=== PATIENT | female | born 1935 | race Caucasian/White ===

== ENCOUNTER 2025-09-09 09:14 | Observation (INO) ==
--- NOTE | 2025-08-10 12:53 | PAT Medication Instructions ---
Medication Instructions Date of Service August 10, 2025 Home Medications acetaminophen 500 mg tablet 500 mg PO BID PRN prn atorvastatin 10 mg tablet 10 mg PO PM enalapril maleate 10 mg tablet 10 mg PO BID metoprolol tartrate 100 mg tablet 50 - 100 mg PO UD DO NOT take the morning of surgery enalapril maleate 10 mg tablet 10 mg PO BID Take morning of surgery With a small sip of water, OTHERWISE NOTHING TO EAT OR DRINK AFTER MIDNIGHT: acetaminophen 500 mg tablet 500 mg PO BID PRN prn (if needed) metoprolol tartrate Take evening before surgery acetaminophen 500 mg tablet 500 mg PO BID PRN prn (if needed) atorvastatin 10 mg tablet 10 mg PO PM enalapril maleate 10 mg tablet 10 mg PO BID metoprolol tartrate Other Notes If you have any questions please call us at [phone] or [phone] or [phone] or [phone]
--- NOTE | 2025-08-17 13:47 | Anesthesiology Consultation ---
Date of Service August 17, 2025 Assessment & Plan (1) Encounter for pre-operative examination: Plan - PCP clearance, Dr. Palak Raymundo [facility] [place], 08/24/25-will see if it is possible to receive [facility] cardiology note for review. - Outpatient joint assessment: Patient is currently scheduled for inpatient pathway. If re-evaluated and patient/surgeon requests outpatient pathway, patient is not a candidate for outpatient joint program. Chart Review Chart Review: Pending: Refer to Additional Notes / Consult section and Patient seen in Pre Admission Testing Teaching & Discussion Pre-Anesthesia Teaching/Discussion Notes: Instructed NPO after midnight before surgery, except medications with 15 cc of water. Medication instructions provided according to the PAT guidelines. History Surgery Operation Date: 09/09/25 07:00 Proposed Procedures p Right Total Knee Arthroplasty - Jorge Castro MD Height/Weight Height: 5 ft 3 in Weight: 59.8 kg Allergies Allergy/AdvReac Type Severity Reaction Status Date / Time Sulfa (Sulfonamide Allergy Unknown Unknown Verified 08/10/25 08:02 Antibiotics) Medications Home Medications Medication Instructions Recorded Confirmed Last Taken acetaminophen 500 mg tablet 500 mg PO BID PRN prn 08/10/25 08/10/25 Unknown atorvastatin 10 mg tablet 10 mg PO PM 08/10/25 08/10/25 Unknown enalapril maleate 10 mg tablet 10 mg PO BID 08/10/25 08/10/25 Unknown metoprolol tartrate 100 mg tablet 50 - 100 mg PO UD 08/10/25 08/10/25 Unknown Past Medical History Medical History 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 Exercise / Class Metabolic Activity III < 4 Walking/Shop/Light housework (ambulates with cane, denies chest discomfort or shortness of breath with usual activities) Past Surgical History Surgical History History of colonoscopy History of rotator cuff surgery bilateral History of bilateral tubal ligation History of lumbar surgery ? fusion, patient unsure History of total left knee replacement History of bunionectomy of both great toes History of cardiac catheterization 40 years ago, no stents, "was done because of early cardiac family deaths-was told they didn't feel surgery was warranted then bc of her age though did show abnormalities" doesn't follow with cardiology-last cardio eval estimated as 5 years ago with [place] [facility] Past Anesthesia History No Hx of Anesthesia Complications and No Family Hx of Anesthesia Complications History of PONV No Hx of PONV and Hx of Motion Sickness Social History Smoking Status: Never smoker Do You Dip or Chew Tobacco: No Hx Alcohol Use: Yes alcohol intake frequency: holidays/special occasions only Hx Substance Use: No substance use type: does not use Review of Systems Patient denies chest pain, shortness of breath, dyspnea on exertion, snoring, witnessed apneas, reflux, fever, chills, cough, wheezing, or palpitations. Physical Exam Vital Signs Vitals BP 146/68 P 59 TEMP 97.4 SP02 97% on RA RESP 17 Physical Patient resting comfortably in chair in no acute distress, alert and oriented, responding appropriately throughout visit Full cervical extension range of motion without pain TMD 3.5 finger breadths Mallampati Score 3 Dentition: several caps/crowns; denies chipped or loose teeth, implants or bridges Lungs: normal respiratory effort. Good air movement, clear throughout to auscultation, no adventitious breath sounds Cardiac: regular rate and rhythm, no murmurs noted Carotid arteries: negative bruit bilat Lab Results Anesthesia Preop Results Results Anesthesia Widget: WBC 8.16 K/ul (4.8-10.8) 08/17/25 Hgb 13.4 g/dl (12.0-16.0) 08/17/25 Hct 42.4 % (37.0-47.0) 08/17/25 Plt 278 K/uL (130-400) 08/17/25 Na 139 mmol/L (136-145) 08/17/25 K 4.7 mmol/L (3.5-5.1) 08/17/25 Cl 104 mmol/L (98-107) 08/17/25 CO2 28 mmol/L (21-32) 08/17/25 BUN 24 mg/dl (6-23) H 08/17/25 Creat 1.18 mg/dl (0.6-1.2) 08/17/25 Glucose Level 101 mg/dl (70-99(Fasting)) H 08/17/25 PT 10.3 Seconds (9.0-12.0) 08/17/25 PTT 29 Seconds (21-31) 08/17/25 INR 0.9 (0.9-1.1) 08/17/25 Urine Color Yellow 08/17/25 Urine Appearance Clear (Clear) 08/17/25 Urine pH 6.5 (4.5-7.5) 08/17/25 Urine Specific [place] 1.004 (1.000-1.030) 08/17/25 Urine Protein Negative (Negative) 08/17/25 Urine Glucose (UA) Negative (Negative) 08/17/25 Urine Ketones Negative (Negative) 08/17/25 Urine Blood Negative (Negative) 08/17/25 Urine Nitrite Negative (Negative) 08/17/25 Urine Bilirubin Negative (Negative) 08/17/25 Urine Urobilinogen Negative (Negative) 08/17/25 Urine Leukocyte Esterase Trace (Negative) H 08/17/25 Urine WBC (Auto) 0-5 /hpf (0-5) 08/17/25 Urine RBC (Auto) 0-2 /hpf (0-2) 08/17/25 Urine Hyaline Casts (Auto) 0-2 /lpf (0-2) 08/17/25 Urine Epithelial Cells (Auto) 0-2 /hpf (0-2) 08/17/25 Urine Bacteria (Auto) None Seen (None Seen) 08/17/25 Blood Type A Positive 08/17/25 Antibody Screen NEGATIVE 08/17/25 Testing Electrocardiogram Date: 08/17/25 Sinus bradycardia, rate 56 bpm
--- NOTE | 2025-08-18 15:07 | History & Physical Report ---
Date of Service August 18, 2025 Assessment & Plan (1) Osteoarthritis of right knee: Plan: PRE-OP Diagnosis: Right knee osteoarthritis Planned Procedure: Right total knee arthroplasty Plan: Patient is scheduled to undergo this procedure at the [facility] with Dr. Castro on September 09, 2025. Risks and complications of the procedure such as: Infection, bleeding, pain, scarring, nerve blood vessel damage, weakness, wound problems, stiffness, incomplete relief of symptoms, hardware failure, hardware loosening, wear, fracture, tendon or ligament injury, blood clots, embolism, cardiac, stroke and were explained to the patient at her visit today and informed consent for the procedure will be obtained on the morning of surgery. We will need to obtain preoperative medical clearance from the patient's primary care provider Dr. Raymundo. Patient is scheduled to meet with anesthesia at the hospital later today. While there she will obtain a CBC with differential, complete metabolic panel, PT/INR, blood type and screen, urinalysis, urine culture and sensitivity, EKG and a nasal culture for MRSA. During today's visit we reviewed the total knee packet. Patient states that she has a permanent placard for her vehicle. I provided her with information about lectures offered by [facility] in regards to joint replacement surgery. Patient has a walker that she will bring with her on the morning of surgery. I recommended that she purchase a shower chair and raised toilet seat. We discussed discharge planning from the hospital. Patient states she will most likely do in-home physical therapy at her daughter's home in [place] for the first 2 weeks before transitioning to outpatient physical therapy. I advised the patient that she will be provided with a prescription for narcotic pain medication for postoperative pain control. We will have her on aspirin twice daily for the first 30 days postoperatively for blood clot prevention. Patient verbalized understanding of all information provided during today's visit. Patient be scheduled for 2-week postoperative follow-up visit with September 22. This chart was completed utilizing [employer] voice recognition software. Grammatical errors, random word insertions, pronoun errors, and in complete sentences are an occasional consequence of the system. Any questions or concerns about the content, text, or information contained within the body of this dictation should be addressed directly to the physician for clarification. History of Present Illness Chief Complaint: Chief Complaint: Right knee pain Primary Care Provider: NO PCP History of Present Illness (including history relevant to procedure): This 89-year-old female presents to the clinic today for her preoperative history and physical examination. Patient complains of right knee pain past 10 years. It has become increasingly worse over the past year and last week very severe that required her to use 2 canes as assistive devices. She has had 5 years of alternating cortisone and gel injections every 6 months, with her last injection 1 year ago. She felt relief after injections lasting for only 1 month, so discontinued them. She has not had physical therapy for her R knee pain. Pain is exacerbated when she rolls over in bed. She manages her pain with Tylenol. She reports she cannot take ibuprofen due to kidney disease. She is not on any blood thinners. She reports limited physical activity, which consists of walking upstairs and downstairs 2 times a day in her home. She reports unsteadiness with walking. She does not report prior injury or surgery in her R knee. She had a L TKA about 20 years ago and reports developing foot drop afterwards. Review Of Systems: A 12 point review of systems is performed and is unremarkable except for those stated in the HPI past medical history. Past Medical History: Problems: Hypertension Hypercholesterolemia Stage III chronic kidney disease History of renal cancer Procedure History Procedure Procedure Date Comments Bilateral shoulder rotator cuff repair Left total knee arthroplasty Kidney removal due to cancer Hysterectomy Bladder suspension Foot surgery (bunionectomy and hammertoe fixation) Spinal surgery Allergies and Sensitivities: Keflex(unknown) sulfa drugs(unknown) Current Home Meds: (Last Updated 08/17 13:21) enalapril (enalapril 10 mg oral tablet) TAKE 1 TABLET BY MOUTH TWO TIMES DAILY metoprolol (Metoprolol Tartrate 100 mg oral tablet) TAKE 1/2 TABLET BY MOUTH EVERY MORNING AND TAKE 1 TABLET BY MOUTH EVERY EVENING unlisted medication (ATORVASTATIN 10 MG TABLET) TAKE 1 TABLET BY MOUTH NIGHTLY Allergies Allergy/AdvReac Type Severity Reaction Status Date / Time Sulfa (Sulfonamide Allergy Unknown Unknown Verified 08/10/25 08:02 Antibiotics) Home Medications Medication Instructions Recorded Confirmed Type acetaminophen 500 mg tablet 500 mg PO BID PRN prn 08/10/25 08/10/25 History atorvastatin 10 mg tablet 10 mg PO PM 08/10/25 08/10/25 History enalapril maleate 10 mg tablet 10 mg PO BID 08/10/25 08/10/25 History metoprolol tartrate 100 mg tablet 50 - 100 mg PO UD 08/10/25 08/10/25 History Past Med/Surg History Problem List (Updated 08/18/25 @ 15:05 by Niraj Armando PA-C) Osteoarthritis of right knee Encounter for pre-operative examination Medical History 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 fusion, patient unsure History of total left knee replacement History of bunionectomy of both great toes History of cardiac catheterization 40 years ago, no stents, "was done because of early cardiac family deaths-was told they didn't feel surgery was warranted then bc of her age though did show abnormalities" doesn't follow with cardiology-last cardio eval estimated as 5 years ago with [place] [facility] Social History Smoking Status: Never smoker Second Hand Exposure: No; Do You Dip or Chew Tobacco: No; Hx Alcohol Use: Yes Hx Substance Use: No Preferred Language: Greenlandic Screening Technician Required: No Beliefs That Will Affect Care: None Current Living Situation: Family Feels Safe at Home: Yes Assistive Devices: Cane and Hearing Aid - Bilateral Review of Systems All systems reviewed & are unremarkable except as noted in Subjective Physical Exam Physical Exam: Initial Wt: 08/17 59.6 kg 131 lb Physical Exam: (relevant to the procedure, including heart and lung evaluation) General: Alert and oriented x 3 with proper grooming and hygiene Eyes: Pupils are equal reactive to light with accommodation. Extraocular movements are intact Throat: Posterior oropharynx clear with absence of edema, erythema or exudate. Dentition is appropriate. Cardiac: Regular rate and rhythm with no murmurs or gallops appreciated Lungs: Clear to auscultation throughout with no wheezing, rales or rhonchi Abdomen: Nonobese, nondistended, nontender with NABS Extremities: Right knee; active knee range of motion is from 8 degrees of extension to 88 degrees of flexion. Patient has visible valgus malalignment experiences lateral joint line tenderness of the knee is palpated in the flexed position. There is audible crepitation with passive range of motion. I was unable to manipulate her patella due to arthritic change within the patellofemoral joint. She had no laxity with varus or valgus stressing. AP drawer sign and Desmond test are negative. Patient is neurovascularly intact in the right lower extremity. Neuro: Cranial nerves II through XII are intact no motor or sensory deficit Skin: Normal appearance of skin areas or discharge Results & Data Diagnostic Findings Studies (relevant to the procedure): 3 view of the R knee long leg alignment obtained today at [facility] show tricompartmental osteophytes and [id number] arthritis in the lateral joint space. Joint space is narrow medially.
[~2025-09-09 09:14] MED LIST: BUPIVACAINE 0.5 % 5 MG/1 ML PF 10ML VIAL ONE; ROPIVACAINE 0.5% 5 MG/ML 30 ML VIAL ONE
[2025-09-09] MEDS ORDERED: MIDAZOLAM HCL 1 MG/ML 2ML VIAL ONE (09:24)
[2025-09-09] MEDS ORDERED: ONDANSETRON INJ 2 MG/ML 2 ML VIAL ONE ×2 (09:31→10:02)
[2025-09-09] MEDS ORDERED: PROPOFOL IV EMULSION 10 MG/ML 20 ML VIAL IV ONE (09:59)
[2025-09-09] MEDS: LR 60ML/HR IV SCH (10:05)
[2025-09-09] MEDS: dexAMETHasone**PF** 10 MG/ML VIAL IV SCH (10:27)
[2025-09-09] MEDS: FAMOTIDINE 20 MG TAB PO SCH (10:28)
[2025-09-09] MEDS: ACETAMINOPHEN 500 MG TAB PO SCH (10:28)
[2025-09-09] MEDS ORDERED: ATROPINE SULFATE 0.1 MG/ML 10ML SYR IV PRN (10:32)
[2025-09-09] MEDS: LR 500ML BOLUS, THEN 15ML/HR IV SCH (10:32)
[2025-09-09] MEDS ORDERED: ONDANSETRON INJ 2 MG/ML 2 ML VIAL IV PRN ×2 (10:32→12:40)
--- NOTE | 2025-09-09 10:32 | History & Physical Bridge Note ---
Date of Service September 09, 2025 History & Physical Bridge Note I have examined the patient, reviewed the History & Physical and in the interval since the performance of the History & Physical I have noted the following changes of clinical significance: no changes noted
[2025-09-09] MEDS: TRANEXAMIC ACID 1,000 MG **IV Pre-op IV SCH (10:42)
[2025-09-09] MEDS: ROPIV 0.5% 246mg, Ketorolac 30mg, EPINEPHrine 0.5mg in NSS INFIL SCH (11:55)
--- NOTE | 2025-09-09 12:26 | Operative Report ---
Post Operative Report Pre & Post Diagnosis Operation Date: 09/09/25 11:10 Pre-Op Diagnosis: Right Knee Osteoarthritis Post-Op Diagnosis: Right Knee Osteoarthritis I identified the patient and participated in the time-out.: Yes Procedure Operation Date: 09/09/25 11:10 Actual Procedures p Right Total Knee Arthroplasty(Right) - Jorge Castro MD Surgeon Jorge Castro MD Fabrication Welder KAYLAH Armando PA-C. No resident or fellow was available to assist Estimated Blood Loss 50 Findings Consistent with Post-Op Diagnosis Specimens Right knee bone and soft tissue contents Anesthesia Type Spinal MAC Complications none Disposition Disposition: Recovery Room Indications 89-year-old female with right knee osteoarthritis refractory to conservative management. X-rays demonstrate [id number] disease with tricompartmental osteophyte formation. I had a long discussion with her about the risks and benefits of surgery, alternatives to surgery, and expected outcomes. After reviewing all these she elected to proceed with surgery. All questions were answered. Informed consent was signed. Description of Procedure Patient was identified in the preoperative holding area where the surgical site, right knee, was marked. Spinal anesthetic was placed by anesthesia. Patient was brought back to the operating room, placed on the operating room table, and IV sedation was administered. A bump was placed underneath the ipsilateral hip. All bony prominences were padded. Perioperative antibiotics and tranexamic acid were administered. Exam under anesthesia was performed. This demonstrated range of motion arc from 5 to 110 degrees. She had valgus malalignment however her collateral ligaments were intact in both varus and valgus stress test at 30 degrees. The surgical site was prepped and draped in the normal sterile fashion. Prior to incision a multidisciplinary timeout was called. All in the room were in agreement. We began by exsanguinating the limb with an Esmarch bandage. Tourniquet was inflated to 250 mmHg. A 14 cm long incision was made over the anterior aspect of the knee. I dissected through the subcutaneous tissues to the level of the fascia. Full-thickness flaps were raised above the fascia. A median parapatellar arthrotomy was made. Half the fat pad was excised. A medial release was performed with Bovie electrocautery on the proximal tibia. Synovi tis in the knee and suprapatellar pouch was removed. The patella was then everted and held with 2 towel clips. The thickness of the patella was measured at 20 mm. Patellar resection was performed. Caliper showed the patella thickness now to be 13 mm. A size 32 trial was placed and had a great fit. The 3 drill holes were placed then the trial button was placed. The patellar thickness was now 22 mm which I was very happy with. The patellar trial was then removed, and the knee was flexed up. Retractors were placed to protect the MCL and LCL. Osteophytes were removed from the femoral condyles and intercondylar notch. The ACL and PCL were excised. Intramedullary drill guide was drilled into the femur. Distal femoral cutting guide was placed set at 5 degrees of valgus to resect 11 mm off the distal femur. Distal femoral resection was made without difficulty. The tibia was then exposed. The lateral meniscus was sharply excised. The tibial cutting jig was positioned in line with the tibial shaft in the coronal plane and with 3 degrees of posterior slope in the sagittal plane to resect 4 mm off the more involved compartment. The jig was then pinned in position and the tibial cut was made. We then brought the knee into full extension. Lamina spreaders were placed. The medial meniscus was excised. The extension block was then placed for 5 mm thickness poly. This gave us full extension and excellent stability to varus and valgus stress. Next the extension block was removed, the knee was flexed up, collateral ligaments were protected, and the epicondylar axis and [place]ites[place] line were marked out on the distal femoral cut. Femoral sizing guide was placed. External rotation was set at 3 degrees so that the posterior cut would be parallel with the epicondylar axis and perpendicular with Whitesides line. The patient sized to a size 3 femur. 2 pins were then placed through the jig into the distal femur. The jig was removed and the appropriately sized 4-in-1 cutting jig was placed over the pins, then fixated to the bone using threaded, headed pins. We confirmed that we would not notch the femur with our anterior cut. Our 4 cuts were then made. The cutting jig was removed. The flexion block was then placed with the knee held at 90 degrees. There was excellent stability to varus and valgus at 90 degrees with no gapping medially or laterally. Next the box cutting jig was placed on the distal femur. The box cut was made and the femoral trial was impacted into position. Lug holes were drilled in the distal femur. We then reexposed the tibia. The tibia was sized to a 3 for a fixed bearing component and pinned in external rotation on the cut tibial surface. The intramedullary drill followed by the keel punch were used to prepare the tibia. The tibial tray with a 5 mm thickness polyethylene liner was placed and the knee was brought through a full range of motion. There was excellent stability to varus valgus stress throughout a full range of motion, which was approximately 0-125 degrees. Next the trial components were removed. I then injected the posterior capsule and periosteum with the periarticular injection cocktail. The bone cuts were then irrigated and dried while the cement was mixed on the back table. The femoral component was cemented on first. Excess cement was removed. A lap sponge was placed over the femoral component for protection, then the tibia was subluxated anteriorly. The all polyethylene tibial component was then cemented in place. Again excess cement was removed. The knee was brought into full extension and held there until the cement cured. The patella was cemented and clamped. Dilute Betadine solution was then allowed to soak in the knee while the cement cured. Once the cement was fully cured, the knee was irrigated out, the tourniquet was let down and meticulous hemostasis was ensured. The knee was brought through a full range of motion. I was were very happy with the patella tracking and the stability. We then began to close. Interrupted 0 Vicryl suture was used to repair the patellar retinaculum in [id number] fashion. The quadriceps and patellar tendons were run with #1 Vicryl. The deep dermal layer was closed with interrupted 2-0 Vicryl. Dermabond and Zipline was used for the skin, followed by a Silverlon dressing. A compressive Frank wrap was placed and the knee was placed into a knee immobilizer. Patient's sedation was lifted and was transferred to recovery room in stable condition. Summary of implants: Depuy Attune Posterior Stabilized Cemented Femur, size 3 right Attune All-polyethylene tibial component, posterior stabilized 5 mm thickness, size 3 Attune patella medialized dome, size 32 2 batches of Pal[place]os bone cement Postoperative course: Patient will be admitted to the floor for pain control and monitoring. Weightbearing as tolerated with a walker with no knee range of motion for 48 hours. Aspirin for DVT prophylaxis. I attest to the content of the Intraoperative Record and any orders documented therein. Any exceptions are noted below.
--- NOTE | 2025-09-09 12:37 | Operative Report ---
Post Operative Report Pre & Post Diagnosis Operation Date: 09/09/25 11:10 Pre-Op Diagnosis: Right Knee Osteoarthritis Post-Op Diagnosis: Right Knee Osteoarthritis I identified the patient and participated in the time-out.: Yes Procedure Operation Date: 09/09/25 11:10 Actual Procedures p Right Total Knee Arthroplasty(Right) - Jorge Castro MD Surgeon Jorge Castro MD Telex Operator KAYLAH Armando PA-C. No resident or fellow was available to assist Estimated Blood Loss 50 Findings Consistent with Post-Op Diagnosis Specimens Right knee bone and soft tissue Description of Procedure I was present during the entire case assisting with positioning, prepping, draping, wound retraction, wound closure, dressing and immobilizer placement. No fellow present. Please see Dr. Castro operative note for specifics of the case. I attest to the content of the Intraoperative Record and any orders documented therein. Any exceptions are noted below.
[2025-09-09] MEDS ORDERED: METOCLOPRAMIDE HCL INJ 5 MG/ML 2 ML VIAL IV PRN (12:40)
[2025-09-09] MEDS ORDERED: MAGNESIUM HYDROXIDE SUSP 30 ML UDC PO PRN (12:40)
[2025-09-09] MEDS ORDERED: ALUMINUM/MAGNESIUM SUSP 30 ML UDC PO PRN (12:40)
[2025-09-09] MEDS ORDERED: diphenhydrAMINE 50 MG/ML VIAL IV PRN (12:40)
[2025-09-09] MEDS ORDERED: NALOXONE HCL 0.4 MG/1 ML VIAL/CARP IV PRN (12:40)
--- NOTE | 2025-09-09 13:10 | XRay Report ---
XR knee RT 1 or 2V routine CLINICAL HISTORY: Surgical Post Op COMPARISON: 08/17/2025 FINDINGS: Right knee prosthesis shows no hardware complication. There is expected soft tissue gas. IMPRESSION: Unremarkable postoperative exam. ACT 112: Negative or not required by law. Electronically signed by: Satya Serrano M.D. 09/09/2025 1:09 PM
[2025-09-09] MEDS: CLINDAMYCIN/D5W 900 MG/50 ML BAG IV SCH (14:31)
[2025-09-09] MEDS: ORTHO JOINT ANESTHETIC ONE (14:31)
[2025-09-09] MEDS ORDERED: ACETAMINOPHEN 500 MG TAB PO PRN (14:40)
[2025-09-09] MEDS ORDERED: POLYETHYLENE (MIRALAX) 17 GM PACK PO PRN (14:40)
[2025-09-09] MEDS: SODIUM CHLORIDE 0.9% 1,000 ML IV SCH (14:41)
--- NOTE | 2025-09-09 15:30 | Anesthesiology Progress Note ---
Date of Service September 09, 2025 Anesthesia Post Procedure Vital Signs Vital Signs: Temp Pulse Pulse Pulse Resp BP BP 09/09/25 15:21 97.9 F 91 H 16 130/74 09/09/25 14:50 97.7 F 85 16 122/72 09/09/25 14:20 97.5 F L 79 14 121/71 09/09/25 14:10 81 18 122/60 09/09/25 13:59 97.5 F L 82 20 115/60 09/09/25 13:50 84 18 114/60 09/09/25 13:40 86 20 117/58 L 09/09/25 13:30 82 17 113/58 L 09/09/25 13:20 82 16 111/59 L 09/09/25 13:10 83 20 113/59 L 09/09/25 13:00 85 17 109/50 L 09/09/25 12:50 77 19 105/54 L 09/09/25 12:40 83 20 100/50 L 09/09/25 12:36 97.0 F L 87 13 98/51 L 09/09/25 09:49 97.7 F 78 20 186/84 H Pulse Ox O2 Del Method O2 Flow Rate 09/09/25 15:21 97 Room Air 09/09/25 14:50 93 Room Air 09/09/25 14:20 94 Room Air 09/09/25 14:10 94 Room Air 09/09/25 13:59 94 Room Air 09/09/25 13:50 93 Room Air 09/09/25 13:40 94 Room Air 09/09/25 13:30 93 Room Air 09/09/25 13:20 92 Room Air 09/09/25 13:10 93 Room Air 09/09/25 13:00 97 Room Air 09/09/25 12:50 97 Room Air 09/09/25 12:40 93 Oxymask 4 09/09/25 12:36 95 Oxymask 6 09/09/25 09:49 98 Room Air Transfer of Care Handoff Completed per policy Notes Mental Status: alert / awake / arousable and participated in evaluation Patient Amnestic to Procedure: Yes Nausea / Vomiting: adequately controlled Pain: adequately controlled Airway Patency, RR, SpO2: stable & adequate BP & HR: stable & adequate Hydration State: stable & adequate Neuraxial Anesthesia: was administered and sensory block is resolving Anesthetic Complications: no major complications apparent and Pt Satisfied with anesthetic care
[2025-09-09] MEDS ORDERED: Scopolamine CHECK PATCH PLACEMENT SCH (16:00)
[2025-09-09] MEDS: CLINDAMYCIN/D5W 600 MG/50 ML BAG IV SCH (17:59)
[2025-09-09 19:12] VITALS: RESP 18
[2025-09-09] MEDS: ENALAPRIL MALEATE 10 MG TAB PO SCH (20:10)
[2025-09-09] MEDS: DOCUSATE SODIUM 100 MG CAP PO SCH (20:11)
[2025-09-09] MEDS: SENNA 8.6 MG TAB PO SCH (20:11)
[2025-09-09] MEDS: METOPROLOL TARTRATE 100 MG TAB PO SCH (20:11)
[2025-09-09] MEDS: ATORVASTATIN 10 MG TAB PO SCH (20:11)
[2025-09-09 23:05] VITALS: TEMP 97.5
[2025-09-10 06:11] VITALS: BP 127/75; PULSE 63; O2SAT 98
[2025-09-10 06:45] LABS: Hematocrit (blood only) 38.8 % (37.0-47.0); Hemoglobin 12.4 g/dl (12.0-16.0); Mean Corpuscular Hemoglobin 30.2 pg (25.0-34.0); Mean Corpuscular Volume 94.4 fL (80.0-100.0); Platelet Count 244 K/uL (130-400); RDW Standard Deviation 44.7 fL (36.4-46.3); Red Blood Count 4.11 M/uL (4.20-5.40); White Blood Count 14.98 K/ul (4.8-10.8)
[2025-09-10 07:09] LABS: Anion Gap 10.0 (3-11); Blood Urea Nitrogen 22.0 mg/dl (6-23); Calcium 9.5 mg/dl (8.6-10.3); Carbon Dioxide 22.0 mmol/L (21-32); Chloride 107.0 mmol/L (98-107); Creatinine Clr Calc Pharmacy 23.5 ml/min; Glucose 99.0 mg/dl (70-99(Fasting)); Potassium 4.8 mmol/L (3.5-5.1); Sodium 139.0 mmol/L (136-145)
--- NOTE | 2025-09-10 09:19 | Orthopedic Progress Note ---
Date of Service September 10, 2025 Assessment & Plan (1) S/P total knee arthroplasty: Plan: PT/OT Weightbearing as tolerated with walker assistance Pain controlled p.o. medication DVT prophylaxis with OSVALDO stockings and aspirin Ice to the easy wrap Immobilizer use until Saturday Keep Silverlon dressing in place until follow-up Plan is to discharge home today with in-home physical therapy for the first 2 weeks Follow-up at [facility] orthopedics as previously scheduled on September 22 with Sandeep Armando With questions contact our clinic at [phone] Admission and Anticipated Discharge Date Admission Date: September 09, 2025 Subjective This 89-year-old female is day 1 status post right total knee arthroplasty. She states she is doing very well. She states that her pain is well-controlled with tramadol and extra-strength Tylenol. She states she has been able to complete physical therapy and Occupational Therapy without issue. She is hoping to be discharged home later this morning to her daughter's house where she will do and home physical therapy for the next 2 weeks. Currently she denies chest pain, shortness of breath, fever, chills, sweats, nausea, vomiting, diarrhea, difficulty voiding or numbness or tingling in her right lower extremity. Review of Systems Review of Systems: All systems reviewed & are unremarkable except as noted in Subjective Physical Exam Physical Exam: Right knee: Outer dressing was removed. Silverlon is clean dry and intact and left in place. Patient is able to perform active straight leg raise test. She is able to actively dorsi and plantarflex her foot. She is able to detect light sensation to touch over the pads of all digits. Active knee range of motion is from 0 degrees of extension to 90 degrees of flexion. Her quad strength is 4 out of 5. Results & Data Vital Signs (Past 12 Hours) Vital Signs Temp Pulse Resp BP Pulse Ox O2 Del Method 09/10/25 06:10 36.4 C L 63 18 127/75 98 Room Air 09/10/25 02:30 36.4 C L 71 18 151/73 H 96 Room Air 09/09/25 23:05 36.4 C L 83 18 109/66 96 Room Air Diagnostic Findings Laboratory Results WBC 14.98 K/ul (4.8-10.8) H 09/10/25 05:51 RBC 4.11 M/uL (4.20-5.40) L 09/10/25 05:51 Hgb 12.4 g/dl (12.0-16.0) 09/10/25 05:51 Hct 38.8 % (37.0-47.0) 09/10/25 05:51 MCV 94.4 fL (80.0-100.0) 09/10/25 05:51 MCH 30.2 pg (25.0-34.0) 09/10/25 05:51 MCHC 32.0 g/dL (32.0-36.0) 09/10/25 05:51 RDW Std Deviation 44.7 fL (36.4-46.3) 09/10/25 05:51 RDW Coeff of Frederic 12.8 % (11.5-14.5) 09/10/25 05:51 Plt Count 244 K/uL (130-400) 09/10/25 05:51 MPV 10.8 fL (9.4-12.4) 09/10/25 05:51 Sodium 139 mmol/L (136-145) 09/10/25 05:51 Potassium 4.8 mmol/L (3.5-5.1) 09/10/25 05:51 Chloride 107 mmol/L (98-107) 09/10/25 05:51 Carbon Dioxide 22 mmol/L (21-32) 09/10/25 05:51 Anion Gap 10 (3-11) 09/10/25 05:51 BUN 22 mg/dl (6-23) 09/10/25 05:51 Creatinine 1.31 mg/dl (0.6-1.2) H 09/10/25 05:51 Est Cr Clr Drug Dosing 23.5 ml/min 09/10/25 05:51 eGFR 39.19 09/10/25 05:51 BUN/Creatinine Ratio 16.8 (10-20) 09/10/25 05:51 Glucose 99 mg/dl (70-99(Fasting)) 09/10/25 05:51 Calcium 9.5 mg/dl (8.6-10.3) 09/10/25 05:51 Impressions Knee X-Ray 09/09/25 12:40 XR knee RT 1 or 2V routine CLINICAL HISTORY: Surgical Post Op COMPARISON: 08/17/2025 FINDINGS: Right knee prosthesis shows no hardware complication. There is expected soft tissue gas. IMPRESSION: Unremarkable postoperative exam. ACT 112: Negative or not required by law. Electronically signed by: Satya Serrano M.D. 09/09/2025 1:09 PM
--- NOTE | 2025-09-10 09:21 | Discharge Summary ---
Date of Service September 10, 2025 Admission HPI Per Admitting Provider History of Present Illness (including history relevant to procedure): This 89-year-old female presents to the clinic today for her preoperative history and physical examination. Patient complains of right knee pain past 10 years. It has become increasingly worse over the past year and last week very severe that required her to use 2 canes as assistive devices. She has had 5 years of alternating cortisone and gel injections every 6 months, with her last injection 1 year ago. She felt relief after injections lasting for only 1 month, so discontinued them. She has not had physical therapy for her R knee pain. Pain is exacerbated when she rolls over in bed. She manages her pain with Tylenol. She reports she cannot take ibuprofen due to kidney disease. She is not on any blood thinners. She reports limited physical activity, which consists of walking upstairs and downstairs 2 times a day in her home. She reports unsteadiness with walking. She does not report prior injury or surgery in her R knee. She had a L TKA about 20 years ago and reports developing foot drop afterwards. Review Of Systems: A 12 point review of systems is performed and is unremarkable except for those stated in the HPI past medical history. Past Medical History: Problems: Hypertension Hypercholesterolemia Stage III chronic kidney disease History of renal cancer Procedure History Procedure Procedure Date Comments Bilateral shoulder rotator cuff repair Left total knee arthroplasty Kidney removal due to cancer Hysterectomy Bladder suspension Foot surgery (bunionectomy and hammertoe fixation) Spinal surgery Allergies and Sensitivities: Keflex(unknown) sulfa drugs(unknown) Current Home Meds: (Last Updated 08/17 13:21) enalapril (enalapril 10 mg oral tablet) TAKE 1 TABLET BY MOUTH TWO TIMES DAILY metoprolol (Metoprolol Tartrate 100 mg oral tablet) TAKE 1/2 TABLET BY MOUTH EVERY MORNING AND TAKE 1 TABLET BY MOUTH EVERY EVENING unlisted medication (ATORVASTATIN 10 MG TABLET) TAKE 1 TABLET BY MOUTH NIGHTLY Admission Exam Per Admitting Provider Physical Exam: (relevant to the procedure, including heart and lung evaluation) General: Alert and oriented x 3 with proper grooming and hygiene Eyes: Pupils are equal reactive to light with accommodation. Extraocular movements are intact Throat: Posterior oropharynx clear with absence of edema, erythema or exudate. Dentition is appropriate. Cardiac: Regular rate and rhythm with no murmurs or gallops appreciated Lungs: Clear to auscultation throughout with no wheezing, rales or rhonchi Abdomen: Nonobese, nondistended, nontender with NABS Extremities: Right knee; active knee range of motion is from 8 degrees of extension to 88 degrees of flexion. Patient has visible valgus malalignment experiences lateral joint line tenderness of the knee is palpated in the flexed position. There is audible crepitation with passive range of motion. I was u nable to manipulate her patella due to arthritic change within the patellofemoral joint. She had no laxity with varus or valgus stressing. AP drawer sign and Desmond test are negative. Patient is neurovascularly intact in the right lower extremity. Neuro: Cranial nerves II through XII are intact no motor or sensory deficit Skin: Normal appearance of skin areas or discharge Principal Diagnosis Right knee osteoarthritis Discharge Exam Right knee: Outer dressing was removed. Silverlon is clean dry and intact and left in place. Patient is able to perform active straight leg raise test. She is able to actively dorsi and plantarflex her foot. She is able to detect light sensation to touch over the pads of all digits. Active knee range of motion is from 0 degrees of extension to 90 degrees of flexion. Her quad strength is 4 out of 5. Discharge Data Allergies Allergy/AdvReac Type Severity Reaction Status Date / Time Sulfa (Sulfonamide Allergy Intermediate Possible Verified 09/09/25 09:39 Antibiotics) hives and swelling-per pt NSAIDS (Non-Steroidal AdvReac Mild advised Verified 09/09/25 09:43 Anti-Inflamma not to take due to kidney disease Procedures Performed Operation Date: 09/09/25 11:10 Actual Procedures p Right Total Knee Arthroplasty(Right) - Jorge Castro MD Ordered Studies 09/09/25 05:00 US - OR guided needle placemen Routine Hospital Course (1) S/P total knee arthroplasty: Patient had an uneventful overnight stay following total knee arthroplasty. She is doing very well this morning. She is hoping to be discharged home to her daughter's house later today. PT/OT Weightbearing as tolerated with walker assistance Pain controlled p.o. medication DVT prophylaxis with OSVALDO stockings and aspirin Ice to the easy wrap Immobilizer use until Saturday Keep Silverlon dressing in place until follow-up Plan is to discharge home today with in-home physical therapy for the first 2 weeks Follow-up at [facility] orthopedics as previously scheduled on September 22 with Sandeep Armando With questions contact our clinic at [phone] Total Time Total Time Spent Total Time Spent (In Minutes): 20 mins Discharge Plan Discharge Items Patient Disposition: Home - Home Health Services Reason For Visit: Right Knee Osteoarthritis Discharge Diagnosis: s/p Right total knee arthroplasty Activity: As commented below Lifting: None Bathing: Keep incision dry Bathing Comment: May shower later today Sexual Activity: Wait until after follow-up appointment Exercise/Sports: Wait until after follow-up appointment Driving/Machine Use: No driving until cleared by pharmaceutical sales specialist Weightbearing: Right weightbearing Weightbearing Comment: As tolerated with walker assistance. Use immobilizer until Saturday when amb Non-emergency contact: Surgeon Call non-emergency contact if: you have any medication questions, your pain is not controlled, your temperature is above 101.5, your wound has increased drainage and your wound pain has increased Follow-up/Referrals: PCP,NO [Physician] - Diet: Regular Addtl Attending Provider Instructions: Post-operative Instructions Dear Patient and Family/Friends, Before you are discharged from the hospital, it is important to know what to expect when you get home after surgery. To that end, we have created this sheet of discharge instructions which covers many commonly asked questions. Make sure you go through this sheet in its entirety with your nurse before you are discharged. Please note that we will go over the specifics of your surgery and recovery when you return for your first post-operative visit. Sincerely, Dr. Castro Medications 1. Tramadol 50 mg: Take 1 to 2 tablets every 4-6 hours as needed for postoperative pain control. A prescription for this medication will be sent to your pharmacy. 2. Extra strength Tylenol 500 mg: Take 2 tablets every 6-8 hours as needed for pain relief. Please purchase this medication. 3. Aspirin 81 mg: Take 1 tablet twice daily for the first 30 days postoperatively for blood clot prevention. Please purchase the medication. Pain Expect to be in a fair amount of pain after surgery. Remember, our goal is not to eliminate your pain, but to make it tolerable. It is a good idea to stay ahead of your pain by taking the medications you were prescribed once you get home. Typically, the pain starts improving 3-7 days after surgery. You should start weaning off the narcotic pain medication (oxycodone, hydrocodone, hydromorphone, morphine) as soon as your pain improves. Please call our office if your pain is not adequately controlled. Ice Ice your operative site at least 5 times a day for 15-30 minutes at a time. Make sure you have a thin cloth between the ice or cooling unit and your skin to prevent bailon bite. This is especially important if you received a nerve block. Continue icing your operative site for the first 5-7 days after surgery, then as needed. Diet/Nausea/Vomiting Start by drinking clear liquids and eating crackers. If you can tolerate this, then you may resume your normal diet. If you feel nauseated or vomit, take Zofran/ondansetron (if prescribed). Please call our office if you have intractable nausea or vomiting, or, if after hours, you may go to the Emergency Room for help. Constipation Constipation is a common side effect of narcotic pain medication. If you have not had a bowel movement within 2 days after surgery, we recommend purchasing an over the counter laxative such as Milk of Magnesia, Dulcolax, or Miralax from a local pharmacy, and taking it as instructed. Call our clinic if any questions. Slings and Braces If you were placed in a sling or brace, it must be worn at all times, including sleep. You may remove your sling or brace for physical therapy, home exercises, and showering. The length of time you will be in your brace and range of motion restrictions depends on what surgery you had; these details will be reviewed at your first post-operative appointment. Nerve block The anesthesia team sometimes places a nerve block to help with post-operative pain control. This results in significant numbness and inability to move the extremity. The nerve block usually wears off in 8-12 hours, but sometimes can last up to 24 hours. Please call our office if you are still unable to move your extremity after 24 hours, unless you received a pain pump to take home. Nerve blocks typically wear off quickly, so start taking pain medication as soon as you start feeling soreness near your surgical site. Weight bearing and Range of Motion. Do not bear any weight through your operative extremity immediately after surgery. If you had upper extremity surgery, do not lift anything with that arm. If you are in a knee brace, keep it locked in place until your follow-up. We will discuss your weight bearing, range of motion, and lifting restrictions in detail at your first post-operative appointment. Continuous Passive Motion (CPM) Machine If you were prescribed a CPM machine, it will start after your first post- operative appointment, at which time we will give you instructions on the range of motion settings and duration of treatment Physical therapy You will be given a prescription for physical therapy or occupational therapy at your first post-operative appointment. Typically, patients start therapy within 1 week of surgery Wound care and showering We will inspect your wound at your first post-operative visit, and may do a dressing change at that time. Most patients will be in a water-proof dressing that is removed 14 days after surgery. It is normal to see some dried blood on the dressing. Do not remove your dressing, paper strips or sutures yourself unless you are given permission. Showering is allowed the day after surgery. Do not scrub or remove any dressi ngs. The wound should not be submerged underwater (i.e. in a bathtub or pool) until 4 weeks after surgery OSVALDO stockings If you were given white stockings, these are to be worn at all times except to shower (on both legs) for the first 2 weeks after surgery. Driving You may not drive while taking narcotic pain medication or while in a cast, splint, sling or brace. You, the patient, need to make the final determination about when you are safe to drive, however, the earliest you may consider driving after surgery is below: Hand/Wrist/Elbow Surgery: 3 days Shoulder Surgery: 2 weeks Hip,/Knee/Ankle Surgery: 4 weeks Fracture repair: 6 weeks Return to Work Your return to work depends on what surgery was done and what type of work you do. Please bring any paperwork your employer needs completed to your first post-operative visit. Also, bring a description of your job duties, as this helps us to understand what risks you may face at work. Travel Avoid long distance travel (greater than 1 hour) in airplanes and cars for the first 6 weeks after surgery. If you must travel, you need to have a Doppler ultrasound done before you travel to rule out a blood clot in your legs. Follow-up You should have a follow-up appointment already scheduled 1-2 days after surgery. If not, please contact our office to make this appointment before you leave the hospital. When to call the office It is normal to have swelling and bruising in the limb that was operated on. This will improve with time. It is also normal to have fevers for the first 2 days after surgery. Reasons you should call your doctor include: Uncontrolled pain; Nausea, vomiting, or constipation that does not improve with medication; Fevers over 101.5, chills, sweats; Drainage or bleeding from the wound; Foul odor; Spreading areas of redness; Any other concerns. Contact Information Please call Dr. Castro's office at [phone] with any concerns. Pending Studies at Discharge: No Stand-Alone Forms: [facility], Smoking Cessation Medications and DC Order Prescriptions: New aspirin 81 mg Tablet,Delayed Release (Dr/Ec) 81 mg PO BID 30 Days Qty: 60 0RF tramadol 50 mg Tablet 50 - 100 mg PO Q4H MDD max 6/day PRN (Reason: Post op pain control) Qty: 28 0RF Continued enalapril maleate [Vasotec] 10 mg Tablet 10 mg PO BID atorvastatin [Lipitor] 10 mg Tablet 10 mg PO PM metoprolol tartrate 100 mg Tablet 50 - 100 mg PO UD Patient Comments: 50mg in AM and 100mg QPM acetaminophen 500 mg Tablet 500 mg PO BID PRN (Reason: prn) polyethylene glycol 3350 [Miralax] 17 gram/dose Powder 17 g PO DAILY PRN (Reason: Constipation) Admission Data Admit Date/Time: 09/09/25 12:40 Attending Provider: Jorge Castro Admit Provider: Jorge Castro Primary Care Provider: Jeanne Raymundo Other Providers: [facility]
[2025-09-10] MEDS: ASPIRIN 81 MG ECTAB PO SCH (09:32)
[2025-09-10] MEDS: dexAMETHasone 10 MG in SYRINGE 0 ML IV SCH (09:32)
[2025-09-10] MEDS: METOPROLOL TARTRATE 50 MG TAB PO SCH (09:32)
[2025-09-10] MEDS: MULTIVITAMIN TAB PO SCH (09:32)
[2025-09-12] MEDS ORDERED: Scopolamine REMOVE TRANSDERM PATCH ONE (08:00)
== END 2025-09-10 10:41 | disposition home health service (06) ==
LOC: 3E 09:14 → ASU 09:14